=== PATIENT | male | born 1950 | race Caucasian/White ===

== ENCOUNTER 2023-10-15 14:36 | Emergency (ER) | payer MEDICARE, OTHER ==
[~2023-10-15] VITALS: Ht 177.8 cm; Wt 62.6 kg
[2023-10-15] MEDS ORDERED: ALBU6.7H9 PO (15:05)
[2023-10-15] MEDS ORDERED: IRBE75TA9 PO (15:05)
[2023-10-15] MEDS ORDERED: IPRATROPIUM BROMIDE 0.5 MG/2.5 ML NEBU ONE (16:08)
[2023-10-15] MEDS ORDERED: ALBUTEROL SULFATE 2.5 MG/3 ML NEBU ONE (16:08)
[2023-10-15 16:10] VITALS: O2SAT 94
[2023-10-15] MEDS: IPRATROPIUM BROMIDE 0.5 MG/2.5 ML NEBU NEB ONE (16:10)
[2023-10-15] MEDS: ALBUTEROL SULFATE 2.5 MG/3 ML NEBU NEB ONE (16:10)
[2023-10-15] MEDS ORDERED: PRED20TA PO (16:55)
[2023-10-15] MEDS ORDERED: FLUT12AE20 INH (16:55)
[2023-10-15] MEDS ORDERED: ACET1TAB23 PO (16:55)
[2023-10-15] MEDS ORDERED: ALBU18HF2 INH (16:55)
[2023-10-15 17:00] VITALS: O2SAT 100
[2023-10-15 17:17] VITALS: BP 128/67; TEMP 98.5; O2SAT 97
== END 2023-10-15 17:18 | disposition home or self-care (01) ==
LOC: ER 14:36
DX: J44.1 Chronic obstructive pulmonary disease with (acute) exacerbation (principal); Z79.899 Other long term (current) drug therapy
CPT/HCPCS: A4606; A4663; J3590